=== PATIENT | male | born 1955 | race Caucasian/White ===

== ENCOUNTER 2023-10-25 05:40 | Observation (INO) ==
[~2023-10-25 05:40] MED LIST: Metoclopramide 5 MG/ML VIAL (10 mg) IV PRN; NS 0.45% 1000 ml BAG 1,000 ML IV SCH; Naloxone 0.4 mg VIAL 0.4 mg/ml 1 ml VIAL IV PRN; Ondansetron 4 mg VIAL 2 MG/ML 2 ml VIAL IV PRN; fentaNYL 100 mcg/2 ml 50 MCG/ML VIAL IV PRN
[2023-10-25] MEDS: Buffered Lidocaine 1% SYRIN 1 ml INTRADERM ONE (06:23)
[2023-10-25] MEDS: Scopolamine 1 mg/72hr PATCH TRANSDERM ONE (06:23)
[2023-10-25] MEDS ORDERED: Tranexamic Acid 1 GM/100ML BAG 2,000 MG/200 ML BAG IV ONE (06:24)
[2023-10-25] MEDS ORDERED: ceFAZolin 2 GM PREMIX 2 GM/50 ML BAG ONE (06:25)
[2023-10-25] MEDS: Lactated Ringers 1000 ml BAG 1,000 ML IV SCH ×2 (06:29→13:46)
[2023-10-25 06:36] LABS: Rapid COVID-19 Molecular Undetected (Undetected)
[2023-10-25] MEDS ORDERED: Midazolam 2 mg/2 ml VIAL 1 mg/ml 2 ml VIAL (2 mg) ONE ×2 (06:51→06:53)
[2023-10-25] MEDS ORDERED: Ondansetron 4 mg VIAL 2 MG/ML 2 ml VIAL ONE (06:51)
[2023-10-25] MEDS ORDERED: Propofol 10 MG/ML 20 ML BTL ONE ×2 (06:51→08:37)
[2023-10-25] MEDS ORDERED: fentaNYL 100 mcg/2 ml 50 MCG/ML VIAL ONE ×2 (06:51→06:53)
[2023-10-25] MEDS ORDERED: Bupivacaine 0.5% PF 10 ML SDV VIAL INJ ONE (06:51)
[2023-10-25] MEDS ORDERED: Dexamethasone IV 4 MG/ML VIAL 1 ml VIAL ONE ×2 (06:51→06:53)
[2023-10-25] MEDS ORDERED: Phenylephrine IV 10 MG/ML 1 ml VIAL ONE (06:51)
[2023-10-25] MEDS ORDERED: Lidocaine 2% PF 5 ML VIAL ONE ×2 (06:51→06:53)
[2023-10-25] MEDS ORDERED: ROPIVACAINE 5 MG/ML 30 ML BTL (0.5%) ONE ×2 (06:53→06:58)
[2023-10-25] MEDS ORDERED: Dexmedetomidine 200 mcg/2 ml 2 ml VIAL (200 mcg) ONE (09:05)
[2023-10-25] MEDS ORDERED: Calcium Carb (TUMS) 500 mg CHEW TAB PO PRN (10:47)
[2023-10-25] MEDS ORDERED: Lactulose 30 ml UDC PO PRN (10:47)
[2023-10-25] MEDS ORDERED: Morphine 2 MG/ML SYRINGE IV PRN (10:47)
[2023-10-25] MEDS ORDERED: Magnesium Hydroxide LIQ 30 ML UDC PO PRN (10:47)
[2023-10-25] MEDS ORDERED: Ondansetron 4 mg VIAL 2 MG/ML 2 ml VIAL IV PRN (10:47)
[2023-10-25] MEDS: Acetaminophen IV 1 GM/100ML 1,000 MG/100 ML BAG IV ONE (13:29)
[2023-10-25] MEDS: ceFAZolin 2 GM PREMIX 2 GM/50 ML BAG IV SCH (16:42)
[2023-10-25] MEDS: Ondansetron ODT 4 mg TAB 4 MG TAB PO PRN (16:48)
[2023-10-25 17:22] VITALS: BP 120/84
[2023-10-25] MEDS ORDERED: Magnesium Hydroxide LIQ 30 ML UDC PO SCH (21:00)
[2023-10-26] MEDS ORDERED: Vitamin THERAPEUTIC TAB PO SCH (09:00)
== END 2023-10-25 18:45 | disposition home or self-care (01) ==
LOC: SSU 05:40 → OR 05:40
PROVIDERS: ADMIT Orthopaedic Surgery Adult Reconstructive Orthopaedic Surgery; ATTEND Orthopaedic Surgery Adult Reconstructive Orthopaedic Surgery